=== PATIENT | female | born 1970 | race Two or more races ===

== ENCOUNTER 2016-07-17 07:19 | Emergency (ER) | payer BC, OTHER ==
[~2016-07-17] VITALS: Ht 157.5 cm; Wt 63.5 kg
[2016-07-17 07:30] VITALS: BP 131/83
[2016-07-17] MEDS ORDERED: NKM (07:39)
[2016-07-17 07:45] LABS: BASOPHILS % (AUTO) 0.3 % (0.0-2.0); EOSINOPHILS % (AUTO) 1.3 % (0.0-3.0); LYMPHOCYTES % (AUTO) 16.2 % (20.0-45.0); MEAN CORPUSCULAR HGB CONC 32.1 G/DL (32.0-36.0); MEAN CORPUSCULAR VOLUME 90 FL (80-99); MEAN PLATELET VOLUME 8.1 FL (6.5-10.1); MONOCYTES % (AUTO) 5.8 % (1.0-10.0); NEUTROPHILS % (AUTO) 76.4 % (45.0-75.0); PLATELET COUNT 261 K/UL (150-450); RED BLOOD COUNT 5.47 M/UL (4.20-5.40); RED CELL DISTRIBUTION WIDTH 11.4 % (11.6-14.8); WHITE BLOOD COUNT 9.4 K/UL (4.8-10.8)
[2016-07-17 07:57] LABS: ACETAMINOPHEN < 10 ug/mL (10-30); ALANINE AMINOTRANSFERASE 23 U/L (3-33); ALBUMIN/GLOBULIN RATIO 1.2 (1.0-2.7); ALCOHOL < 10 mg/dL; ANION GAP 21 (5-15); ASPARTATE AMINO TRANSFERASE 27 U/L (5-40); CALCIUM 9.3 mg/dL (8.6-10.2); CARBON DIOXIDE 20 mEQ/L (20-30); CHLORIDE 93 mEQ/L (98-107); CREATININE 0.8 mg/dL (0.5-0.9); GLOMERULAR FILTRATION RATE > 60 mL/min (>60); HEMOLYSIS 6; POTASSIUM 3.6 mEQ/L (3.4-4.9); SODIUM 134 mEQ/L (135-145); TOTAL PROTEIN 8.1 g/dL (6.6-8.7)
[2016-07-17 07:59] LABS: TROPONIN I < 0.30 ng/mL (<=0.30)
--- NOTE | 2016-07-17 08:08 | Emergency Room Report ---
History of Present Illness General Chief Complaint: Altered Level of Consciousness Source: Family Member Present Illness HPI 46-year-old female presents to ED for evaluation. at bedside states that this morning patient got up to use the bathroom complaining of abdominal pain. Patient states she was having diarrhea. When he went to check on the patient she was passed out on the toilet. Upon arrival patient is lethargic and not talking, however protecting her airway. 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 States that she worked last night came home early this morning. Patient is unable to provide any additional history at this time. No signs of distress. denies any alcohol or drug use. Denies any psychiatric history. States she was feeling fine as of last night. No other aggravating or relieving factors. Denies any other associated symptoms Allergies: Coded Allergies: UNABLE TO ASSESS (Unverified , 07/17/16) Patient History Past Medical History: none Past Surgical History: none Pertinent Family History: none Social History: Denies: alcohol use, drug use, smoking Now: No Immunizations: UTD Reviewed Nursing Documentation: PMH: Agreed, PSxH: Agreed Nursing Documentation-PMH Past Medical History Deferred: No Family Available Past Medical History: No Stated History Review of Systems All Other Systems: negative except mentioned in HPI Physical Exam Vital Signs Date Time Temp Pulse Resp B/P Pulse Ox O2 Delivery O2 Flow Rate FiO2 07/17/16 07:15 97.7 91 18 166/93 99 Room Air Sp02 EP Interpretation: reviewed, normal General Appearance: no apparent distress, non-toxic, lethargic Head: normocephalic, atraumatic Eyes: bilateral eye PERRL, bilateral eye normal inspection ENT: hearing grossly normal, normal pharynx, no angioedema, normal voice Neck: full range of motion, supple/symm/no masses Respiratory: chest non-tender, lungs clear, normal breath sounds Cardiovascular #1: regular rate, rhythm, no edema Cardiovascular #2: 2+ carotid (R), 2+ carotid (L), 2+ radial (R), 2+ radial (L) , 2+ dorsalis pedis (R), 2+ dorsalis pedis (L) Gastrointestinal: normal bowel sounds, non tender, soft, non-distended, no guarding, no rebound Rectal: deferred Genitourinary: normal inspection, no CVA tenderness Musculoskeletal: back normal, gait/station normal, normal range of motion, non- tender Neurologic: other - lethargic Psychiatric: other - lethargic Reflexes: 3+ bicep (R), 3+ bicep (L), 3+ tricep (R), 3+ tricep (L), 3+ knee (R) , 3+ knee (L) Skin: normal color, no rash, warm/dry, well hydrated Lymphatic: no adenopathy Medical Decision Making Diagnostic Impression: Primary Impression: Altered level of consciousness Additional Impression: Enteritis ER Course Hospital Course 46-year-old female presents to ED with altered level of consciousness. Complaining of abdominal pain at home but then passed out. Had diarrhea Differential diagnosis includes-appendicitis, cholecystitis, small bowel obstruction, gastritis, Clinical course Patient placed on stretcher. Patient initially very lethargic, not responsive to questions or exam. Abdomen soft After initial history and physical I ordered labs, IV fluids, CT head Labs - no leukocytosis, electrolytes ok, LFTs normal, UA unremarkable CT head ok Given that patient was having abdominal pain prior to presentation I ordered CT abdomen pelvis CT abdomen and pelvis shows changes consistent with enteritis, appendix not visualized, hydrosalpinx noted Upon reassessment, patient is more awake now. Stating that she was feeling not well yesterday before she went to work. Feels better now. Wishes to be discharged I feel this is a highly complex case requiring extensive working including EKG/ Rhythm strip, Xray/CT/US, Blood/urine lab work, repeat exams while in ED, and administration of strong opiates/narcotics for pain control, admission to hospital or close patient follow up. Diagnosis - ALOC, enteritis Stable and discharged to home with Rx Zantac, zofran, bentyl. Followup with PMD. Return to ED if symptoms recur or worsen Labs Test 07/17/16 07:30 07/17/16 07:40 07/17/16 08:05 White Blood Count 9.4 K/UL (4.8-10.8) Red Blood Count 5.47 M/UL (4.20-5.40) Hemoglobin 15.9 G/DL (12.0-16.0) Hematocrit 49.4 % (37.0-47.0) Mean Corpuscular Volume 90 FL (80-99) Mean Corpuscular Hemoglobin 29.0 PG (27.0-31.0) Mean Corpuscular Hemoglobin Concent 32.1 G/DL (32.0-36.0) Red Cell Distribution Width 11.4 % (11.6-14.8) Platelet Count 261 K/UL (150-450) Mean Platelet Volume 8.1 FL (6.5-10.1) Neutrophils (%) (Auto) 76.4 % (45.0-75.0) Lymphocytes (%) (Auto) 16.2 % (20.0-45.0) Monocytes (%) (Auto) 5.8 % (1.0-10.0) Eosinophils (%) (Auto) 1.3 % (0.0-3.0) Basophils (%) (Auto) 0.3 % (0.0-2.0) Sodium Level 134 mEQ/L (135-145) Potassium Level 3.6 mEQ/L (3.4-4.9) Chloride Level 93 mEQ/L (98-107) Carbon Dioxide Level 20 mEQ/L (20-30) Anion Gap 21 (5-15) Blood Urea Nitrogen 14 mg/dL (7-23) Creatinine 0.8 mg/dL (0.5-0.9) Estimat Glomerular Filtration Rate > 60 mL/min (>60) Glucose Level 169 mg/dL (74-106) Calcium Level 9.3 mg/dL (8.6-10.2) Total Bilirubin 0.5 mg/dL (0.0-1.2) Aspartate Amino Transf (AST/SGOT) 27 U/L (5-40) Alanine Aminotransferase (ALT/SGPT) 23 U/L (3-33) Alkaline Phosphatase 73 U/L (35-104) Total Creatine Kinase 90 U/L (26-140) Creatine Kinase MB < 1.5 ng/mL (< 3.8) Creatine Kinase MB Relative Index 1.6 Troponin I < 0.30 ng/mL (<=0.30) Total Protein 8.1 g/dL (6.6-8.7) Albumin 4.5 g/dL (3.5-5.2) Globulin 3.6 g/dL Albumin/Globulin Ratio 1.2 (1.0-2.7) Lipase 23 U/L (< 60) Salicylates Level < 1 mg/dL (10-30) Acetaminophen Level < 10 ug/mL (10-30) Serum Alcohol < 10 mg/dL Lactic Acid Level 1.80 mmol/L (0.66-2.22) Urine Color Yellow Urine Appearance Slightly cloudy Urine pH 7 (4.5-8.0) Urine Specific [place] 1.010 (1.005-1.035) Urine Protein 3+ (NEGATIVE) Urine Glucose (UA) Negative (NEGATIVE) Urine Ketones 4+ (NEGATIVE) Urine Occult Blood 2+ (NEGATIVE) Urine Nitrite Negative (NEGATIVE) Urine Bilirubin Negative (NEGATIVE) Urine Urobilinogen 1 MG/DL (0.0-1.0) Urine Leukocyte Esterase 1+ (NEGATIVE) Urine RBC 2-4 /HPF (0 - 2) Urine WBC 2-4 /HPF (0 - 2) Urine Squamous Epithelial Cells Few /LPF (NONE/OCC) Urine Bacteria Few /HPF (NONE) Urine HCG, Qualitative Negative Urine Opiates Screen Negative (NEGATIVE) Urine Barbiturates Screen Negative (NEGATIVE) Phencyclidine (PCP) Screen Negative (NEGATIVE) Urine Amphetamines Screen Negative (NEGATIVE) Urine Benzodiazepines Screen Negative (NEGATIVE) Urine Cocaine Screen Negative (NEGATIVE) Urine Marijuana (THC) Screen Negative (NEGATIVE) EKG Diagnostic Results Rate: normal Rhythm: NSR ST Segments: no acute changes ASA given to the pt in ED: No Rhythm Strip Diag. Results EP Interpretation: yes Rhythm: NSR, no PVC's, no ectopy CT/MRI/US Diagnostic Results CT/MRI/US Diagnostic Results : Imaging Test Ordered: CT Head, CT A/P Impression CT Head - no acute process CT A/P - enteritis. hydrosalpinx Last Vital Signs Date Time Temp Pulse Resp B/P Pulse Ox O2 Delivery O2 Flow Rate FiO2 07/17/16 07:30 97.0 79 17 131/83 100 Room Air Status: improved Disposition: HOME, SELF-CARE Condition: Stable Scripts Ranitidine Hcl* (ZANTAC*) 150 Mg Tablet 150 MG ORAL DAILY, #30 TAB 0 Refills Prov: ALEC ANN M.D. 07/17/16 Dicyclomine Hcl* (BENTYL*) 10 Mg Capsule 10 MG ORAL FOUR TIMES A DAY for 5 Days, CAP Prov: ALEC ANN M.D. 07/17/16 Ondansetron Odt* (ZOFRAN ODT*) 4 Mg Tab.rapdis 4 MG ORAL Q6H Y for Nausea & Vomiting, #30 TAB 0 Refills Prov: ALEC ANN M.D. 07/17/16 Referrals: SHAHRIAR NAILS M.D. (PCP) ALEC ANN M.D. July 17, 2016 08:08
[2016-07-17 08:09] LABS: CKMB < 1.5 ng/mL (< 3.8)
[2016-07-17 08:11] LABS: APPEARANCE,URINE SLIGHTLY CLOUDY; KETONES,URINE 4+ (NEGATIVE); LEUKOCYTE ESTERASE ,URINE 1+ (NEGATIVE); NITRITE,URINE NEGATIVE (NEGATIVE); PH,URINE 7 (4.5-8.0); PROTEIN,URINE 3+ (NEGATIVE); UROBILINOGEN,URINE 1 MG/DL (0.0-1.0)
--- NOTE | 2016-07-17 08:12 | Diagnostic Imaging Report ---
Indication: Shortness of breath Technique: Single portable AP view of the chest. Findings: Comparison: None. Stomach is mildly distended by gas. The bones and remaining extra pulmonary soft tissues, cardiomediastinal silhouette, pulmonary vasculature and parenchyma, and pleural surfaces are unremarkable. IMPRESSION: Gaseous distention of stomach, nonspecific Otherwise negative portable AP chest.
[2016-07-17 08:49] LABS: BACTERIA,URINE FEW /HPF; SQUAMOUS EPITHELIAL CELL,UR FEW /LPF (NONE/OCC)
--- NOTE | 2016-07-17 09:28 | Diagnostic Imaging Report ---
Indications: Abdominal pain and vomiting Technique: Continuous helical CT imaging of the abdomen and pelvis was performed with automatic exposure control following administration of nonionic IV contrast only, on a Siemens sensation [address] scanner. Axial and coronal images were reconstructed at 5 mm slice thickness. No oral contrast was administered per requesting physician's order, presumably due to vomiting. CTDI volume(s): 12 mGy Total DLP: 634 mGy-cm Findings: Comparison: None Lack of oral contrast limits evaluation of gastrointestinal tract. Multiple loops of mid-distal small bowel are variably distended and fluid-filled with questionable mild mural thickening. No obvious discrete transition point. Proximal portion of appendix questionably partially identified, 7 mm in diameter, without obvious acute inflammatory change. Distal extent obscured within right hemipelvis by adjacent bowel and adnexal structures. There is an elongated, serpiginous fluid-filled structure in the right adnexal region near the visualized proximal appendiceal segment. Small amount pelvic free fluid. Increased fluid with air-fluid levels throughout colon to rectum. No obvious extraluminal gas or loculated fluid collections detected. 3 mm circumscribed low-attenuation focus medial aspect hepatic segment 5, not further characterizable. 13 mm circumscribed low-attenuation focus in the medial upper pole cortex of left kidney, attenuation higher than expected for simple fluid. 8 and 12 mm adjacent cystic-appearing foci in left adnexal region. Gallbladder, pancreas, spleen, adrenal glands, right kidney, unopacified ureters and distended urinary bladder, uterus, vascular structures, retroperitoneum, mesentery, remainder visualized abdominopelvic anatomy unremarkable. Heart appears mildly enlarged. Pleural-based linear densities, increased interstitial markings and dependent portions of both lung bases. No focal skeletal abnormality identified. Impression: Small bowel findings most compatible with ileus or enteritis. Reactive ileus not excludable. Questionable partial visualization of appendix. Distal appendicitis not excludable. Right adnexal elongated fluid-filled structure, nonspecific, may represent dilated fluid-filled distal appendix, small bowel loop, or hydrosalpinx. Increased colorectal fluid content compatible with diarrhea Small amount pelvic free fluid, likely reactive to one or more of the above Nonspecific 3 mm low-attenuation focus right hepatic lobe 13 mm low-attenuation lesion left renal upper pole cortex most likely proteinaceous cyst. Solid lesion not excludable. Ultrasound correlation recommended. Left adnexal cystic foci most likely physiologic ovarian in nature. Pulmonary bibasal subsegmental atelectasis
[2016-07-17 09:42] VITALS: BP 148/86
[2016-07-17] MEDS ORDERED: Ketorolac 30mg Inj IV ONE (10:15)
[2016-07-17] MEDS ORDERED: ZOFRAN ODT4 MG ORAL (10:59)
[2016-07-17] MEDS ORDERED: ZANTAC150 MG ORAL (10:59)
[2016-07-17] MEDS ORDERED: BENTYL10 MG ORAL (10:59)
[2016-07-17 11:11] VITALS: BP 121/68
--- NOTE | 2016-07-19 08:33 | Cardiology Report ---
APPROVED REPORT EKG Measurement Heart [id number] Normal sinus rhythm Minimal voltage criteria for LVH, may be normal variant T wave abnormality, consider inferolateral ischemia Prolonged QT Abnormal ECG
--- NOTE | 2016-07-19 08:33 | Diagnostic Imaging Report ---
Indications: Altered mental status Technique: Continuous helical CT imaging of the brain was performed with automatic exposure control on a Siemens sensation [address] scanner. Axial and coronal images were reconstructed at 5 mm slice thickness and interval. CTDI volume(s): 70 mGy Total DLP: 1347 mGy-cm Findings: Comparison: None. Images somewhat degraded by motion.. No evidence of mass or hemorrhage, other attenuation abnormality, mass effect, midline shift, hydrocephalus or increased intracranial pressure. Bone window images are unremarkable. Visualized paranasal sinuses and mastoid air cells are clear. IMPRESSION: Negative noncontrast CT scan of the brain with limitation as described. This correlates with [employer] preliminary report. The CT scanner at [facility] is accredited by the [employer] and the scans are performed using protocols designed to limit radiation exposure to as low as reasonably achievable to attain images of sufficient resolution adequate for diagnostic evaluation.
== END 2016-07-17 11:14 | disposition home or self-care (01) ==
LOC: EDBD 07:19 → EMR 07:38
DX: R41.82 Altered mental status, unspecified (principal); K52.9 Noninfective gastroenteritis and colitis, unspecified
CPT/HCPCS: 36415; 70450; 71010; 74177; 80053; 80300; 81003; 81025; 82550; 82553; 83605; 83690; 84484; 85025; 93005; 96360; 96374; 96375; 99284; G0480; J1885; J2405; Q9967; 80329